=== PATIENT | female | born 1995 ===

== ENCOUNTER 2020-06-21 21:31 | Emergency (ER) | payer OTHER ==
[~2020-06-21] VITALS: Ht 162.6 cm; Wt 68.0 kg
== END 2020-06-22 01:52 | disposition home or self-care (01) ==
LOC: ER 21:31
DX: B34.9 Viral infection, unspecified (principal); J06.9 Acute upper respiratory infection, unspecified; Z20.822 Contact with and (suspected) exposure to COVID-19